=== PATIENT | male | born 1950 | race Caucasian/White ===

== ENCOUNTER 2016-10-13 04:13 | Inpatient (IN) | payer MEDICARE ==
[~2016-10-13] VITALS: Ht 172.7 cm; Wt 95.0 kg
[2016-10-13] VITALS (7 sets, daily range): BP systolic 122–167; BP diastolic 58–72
[2016-10-13 04:53] LABS: HEMATOCRIT 41.9 % (42.0-52.0); HEMOGLOBIN 14.4 g/dl (14.0-18.0); MEAN CELL VOLUME 92.3 fl (80.0-94.0); MEAN CORPUSCULAR HGB 31.7 pg (27.0-31.0); MEAN CORPUSCULAR HGB CONC 34.4 g/dl (33.0-37.0); MEAN PLATELET VOLUME 9.8 fl (9.6-12.3); PLATELET COUNT AUTOMATED 201 10*3/uL (130-400); RED BLOOD COUNT 4.54 10*6/uL (4.50-5.90); RED CELL DISTRI WIDTH 12.5 % (0-14.5); WHITE BLOOD COUNT 9.6 10*3/uL (4.8-10.8)
[2016-10-13 05:10] LABS: ALBUMIN 3.6 gm/dl (3.1-4.5); ALKALINE PHOSPHATASE 120 U/L (45-117); BUN 21 mg/dl (7-24); CHLORIDE 105 mmol/L (98-107); CREATININE 1.38 mg/dL (0.70-1.30); LIPASE 110 U/L (73-393); SGOT/AST 27 IU/L (3-35); SGPT/ALT 31 U/L (12-78); SODIUM 141 mmol/L (136-145); TOTAL PROTEIN 7.5 gm/dL (6.4-8.2)
[2016-10-13 05:13] LABS: TOTAL CELLS COUNTED 100 #CELLS
[2016-10-13 05:14] LABS: PLATELET SUFFICIENCY NORMAL (NORMAL)
[2016-10-13] MEDS ORDERED: FLOMAX0.4 MG PO (07:54)
[2016-10-13] MEDS ORDERED: NORCO 5-325 TA1 EACH PO (07:54)
[2016-10-13] MEDS ORDERED: ZOFRAN ODT4 MG SL (07:54)
[2016-10-13 12:12] LABS: BILIRUBIN NEGATIVE (NEGATIVE); BLOOD NEGATIVE (NEGATIVE); CLARITY CLEAR (CLEAR); COLOR YELLOW (YELLOW); GLUCOSE NEGATIVE (NEGATIVE); KETONE NEGATIVE (NEGATIVE); LEUKO ESTERASE NEGATIVE (NEGATIVE); NITRITE NEGATIVE (NEGATIVE); UROBILINOGEN 0.2 E.U./dl (0.2-1.0)
[2016-10-13 12:33] LABS: WBC 0-2 wbc/hpf (0-5)
[2016-10-14] VITALS: BP 133/50
[2016-10-14 07:56] LABS: CREATININE 2.14 mg/dL (0.70-1.30); MAGNESIUM 2.1 mg/dL (1.5-2.1); PHOSPHOROUS 2.5 mg/dL (2.5-4.9); POTASSIUM 4.5 mmol/L (3.5-5.1)
[2016-10-14 08:00] VITALS: BP 139/48
[2016-10-14 08:03] LABS: THYROID STIM HORMONE (HS) 0.933 uIU/ml (0.358-4.75)
[2016-10-14 08:04] LABS: VITAMIN D, 25-HYDROXY 19.3 ng/mL (30-100)
[2016-10-14 12:00] VITALS: BP 132/61
[2016-10-14] MEDS ORDERED: NORCO 5/325 PO (14:18)
[2016-10-14] MEDS ORDERED: FLOMAX0.4 MG PO (14:18)
[2016-10-14] MEDS ORDERED: ZOFRAN4 MG PO (14:18)
[2016-10-14] MEDS ORDERED: Vitamin D PO (14:18)
[2016-10-14] MEDS ORDERED: NORCO 5-325 TA1 EACH PO (14:22)
[2016-10-14 16:00] VITALS: BP 114/45
[2016-10-14 20:00] VITALS: BP 125/57
[2016-10-15] VITALS: BP 120/55
[2016-10-15 07:31] LABS: BASO % 0.1 % (0.0-1.0); EOS % 0.3 % (1.0-4.0); HEMATOCRIT 37.2 % (42.0-52.0); HEMOGLOBIN 12.8 g/dl (14.0-18.0); LYMPH # 2.2 10*3/uL (1.3-4.4); LYMPH % 15.9 % (27.0-41.0); MEAN CELL VOLUME 91.2 fl (80.0-94.0); MEAN CORPUSCULAR HGB 31.4 pg (27.0-31.0); MEAN CORPUSCULAR HGB CONC 34.4 g/dl (33.0-37.0); MEAN PLATELET VOLUME 10.1 fl (9.6-12.3); MONO # 0.9 10*3/uL (0.1-1.0); MONO % 6.9 % (3.0-9.0); NEUT # 10.3 10*3/uL (2.3-7.9); NEUT % 76.1 % (47.0-73.0); PLATELET COUNT AUTOMATED 158 10*3/uL (130-400); RED BLOOD COUNT 4.08 10*6/uL (4.50-5.90); RED CELL DISTRI WIDTH 12.5 % (0-14.5); WHITE BLOOD COUNT 13.5 10*3/uL (4.8-10.8)
[2016-10-15 07:54] LABS: CREATININE 2.39 mg/dL (0.70-1.30); POTASSIUM 4.3 mmol/L (3.5-5.1)
[2016-10-15 08:00] VITALS: BP 138/61
[2016-10-15 12:00] VITALS: BP 126/67
== END 2016-10-15 16:20 | disposition short-term general hospital (02) | DRG 694 ==
LOC: ED 04:13 → 4E 08:08 → EDHOLD 08:08 → 4E 08:28
PROVIDERS: Emergency Medicine Emergency Medical Services; Student in an Organized Health Care Education/Training Program; ADMIT Internal Medicine
DX: N13.2 Hydronephrosis with renal and ureteral calculous obstruction (principal); N17.0 Acute kidney failure with tubular necrosis; E87.2 Acidosis; R73.9 Hyperglycemia, unspecified; E55.9 Vitamin D deficiency, unspecified; Z82.49 Family history of ischemic heart disease and other diseases of the circulatory system

== ENCOUNTER 2018-06-07 23:50 | Emergency (ER) | payer MEDICARE ==
[~2018-06-07] VITALS: Ht 175.2 cm; Wt 90.7 kg
--- NOTE | ~2018-06-07 | EKG ---
[place], [place] ELECTROCARDIOGRAM REPORT NAME: VANESSA MAURICE UNIT #: [id number] ROOM: DOCTOR: EPIPHANY DRAFT REPORT BIRTHDATE: [birth year] [facility] Test Date: 2018-06-08 Test Time: 00:13:58 Pat Name: VANESSA MAURICE Department: ED Room: 8 Gender: M [employer]: Sharon Diego : 1950 Requested By: ES GONZALEZ Order Number: [id number] Reading MD: Aram Escoto MD Measurements Intervals [place] Rate: 99 P: 24 ME: 152 QRS: 55 QRSD: 91 T: 6 QT: 337 QTc: 433 Interpretive Statements Sinus rhythm Nonspecific ST T changes Electronically Signed On 06-08-2018 12:19:46 PDT by Aram Escoto MD CM:EKGRPT:ELECTROCARDIOGRAM REPORT 0013 [id number] SE GONZALEZ MD EPIPHANY DRAFT REPORT SE GONZALEZ MD
[~2018-06-07 23:50] MED LIST: FLOMAX0.4 MG PO; NORCO 5-325 TA1 EACH PO; NORCO 5/325 PO; Vitamin D PO; ZOFRAN ODT4 MG SL; ZOFRAN4 MG PO
[2018-06-08 00:34] LABS: BASO % 0.2 % (0.0-1.0); EOS # 0.1 10*3/uL (0.0-0.4); EOS % 0.6 % (1.0-4.0); HEMATOCRIT 41.1 % (42.0-52.0); HEMOGLOBIN 14.5 g/dl (14.0-18.0); LYMPH # 1.9 10*3/uL (1.3-4.4); LYMPH % 17.2 % (27.0-41.0); MEAN CELL VOLUME 90.1 fl (80.0-94.0); MEAN CORPUSCULAR HGB 31.8 pg (27.0-31.0); MEAN CORPUSCULAR HGB CONC 35.3 g/dl (33.0-37.0); MEAN PLATELET VOLUME 9.5 fl (9.6-12.3); MONO # 1.1 10*3/uL (0.1-1.0); MONO % 9.8 % (3.0-9.0); NEUT % 71.7 % (47.0-73.0); PLATELET COUNT AUTOMATED 310 10*3/uL (130-400); RED BLOOD COUNT 4.56 10*6/uL (4.50-5.90); RED CELL DISTRI WIDTH 12.1 % (0-14.5); WHITE BLOOD COUNT 11.1 10*3/uL (4.8-10.8)
[2018-06-08 00:44] LABS: ACT PARTIAL THROMBO TIME 23.5 SECONDS (20.8-31.5)
[2018-06-08 00:50] LABS: ALBUMIN 3.2 gm/dl (3.1-4.5); ALKALINE PHOSPHATASE 95 U/L (45-117); BUN 21 mg/dl (7-24); CHLORIDE 105 mmol/L (98-107); CREATININE 1.37 mg/dL (0.70-1.30); LIPASE 80 U/L (73-393); POTASSIUM 3.4 mmol/L (3.5-5.1); SGOT/AST 18 IU/L (3-35); SGPT/ALT 20 U/L (12-78); SODIUM 139 mmol/L (136-145); TOTAL PROTEIN 8.4 gm/dL (6.4-8.2)
[2018-06-08] MEDS ORDERED: PREDNISONE10 MG PO (00:51)
[2018-06-08] MEDS ORDERED: ZITHROMAX250 MG PO (00:51)
[2018-06-08] MEDS ORDERED: MUCINEX DM 30/61 TAB PO (00:51)
[2018-06-08 00:54] LABS: TROPONIN I < 0.015 ng/ml (<0.045)
== END 2018-06-08 02:10 | disposition home or self-care (01) ==
LOC: ED 23:50
PROVIDERS: Emergency Medicine Emergency Medical Services
DX: J20.9 Acute bronchitis, unspecified (principal); Z79.899 Other long term (current) drug therapy

== ENCOUNTER → 2018-09-07 | Outpatient (CLI) | payer MEDICARE ==
[~2018-09-07] MED LIST changes: +MUCINEX DM 30/61 TAB PO; +PREDNISONE10 MG PO; +ZITHROMAX250 MG PO
--- NOTE | ~2018-09-07 | EKG ---
[place], [place] ELECTROCARDIOGRAM REPORT NAME: VANESSA MAURICE UNIT #: [id number] ROOM: DOCTOR: EPIPHANY DRAFT REPORT BIRTHDATE: [birth year] [facility] Test Date: 2018-09-07 Test Time: 09:06:23 Pat Name: VANESSA MAURICE Department: Room: Gender: [place]: : 1950 Requested By: SERENA GURROLA Order Number: [id number] Reading MD: Álvaro Leon MD Measurements Intervals [place] Rate: 58 P: 42 ME: 177 QRS: 57 QRSD: 92 T: 35 QT: 423 QTc: 416 Interpretive Statements Sinus rhythm Abnormal R-wave progression, early transition Compared to ECG 06/08/2018 00:13:58 No significant changes Electronically Signed On 09-19-2018 8:28:57 PDT by Álvaro Leon MD CM:EKGRPT:ELECTROCARDIOGRAM REPORT 5 [id number] SERENA PALENCIA DRAFT REPORT SERENA GURROLA MD
[2018-09-07 09:34] LABS: BASO % 0.5 % (0.0-1.0); EOS # 0.1 10*3/uL (0.0-0.4); EOS % 1.9 % (1.0-4.0); HEMATOCRIT 42.3 % (42.0-52.0); HEMOGLOBIN 14.5 g/dl (14.0-18.0); LYMPH # 2.7 10*3/uL (1.3-4.4); LYMPH % 42.2 % (27.0-41.0); MEAN CELL VOLUME 93.2 fl (80.0-94.0); MEAN CORPUSCULAR HGB 31.9 pg (27.0-31.0); MEAN CORPUSCULAR HGB CONC 34.3 g/dl (33.0-37.0); MEAN PLATELET VOLUME 9.7 fl (9.6-12.3); MONO # 0.7 10*3/uL (0.1-1.0); NEUT # 2.8 10*3/uL (2.3-7.9); NEUT % 44.1 % (47.0-73.0); PLATELET COUNT AUTOMATED 188 10*3/uL (130-400); RED BLOOD COUNT 4.54 10*6/uL (4.50-5.90); RED CELL DISTRI WIDTH 12.9 % (0-14.5); WHITE BLOOD COUNT 6.4 10*3/uL (4.8-10.8)
[2018-09-07 10:03] LABS: ALBUMIN 3.7 gm/dl (3.1-4.5); ALKALINE PHOSPHATASE 122 U/L (45-117); BUN 18 mg/dl (7-24); CHLORIDE 105 mmol/L (98-107); CHOLESTEROL 233 mg/dL (<200); CREATININE 1.29 mg/dL (0.70-1.30); HDL CHOLESTEROL 46 mg/dl (40-60); LDL CHOLESTEROL 169 mg/dL (9-159); POTASSIUM 4.1 mmol/L (3.5-5.1); SGOT/AST 21 IU/L (3-35); SGPT/ALT 36 U/L (12-78); SODIUM 138 mmol/L (136-145); TOTAL PROTEIN 7.8 gm/dL (6.4-8.2); TRIGLYCERIDES 91 mg/dl (<150); VLDL CHOLESTEROL 18 mg/dL (6-40)
== END | disposition home or self-care (01) ==
LOC: RESCLI 09-06 12:49
PROVIDERS: Internal Medicine Nephrology
DX: Z12.11 Encounter for screening for malignant neoplasm of colon (principal); Z12.5 Encounter for screening for malignant neoplasm of prostate; Z12.12 Encounter for screening for malignant neoplasm of rectum; L82.1 Other seborrheic keratosis; R03.0 Elevated blood-pressure reading, without diagnosis of hypertension; N52.9 Male erectile dysfunction, unspecified; Z76.89 Persons encountering health services in other specified circumstances; Z88.8 Allergy status to other drugs, medicaments and biological substances; Z79.899 Other long term (current) drug therapy

== ENCOUNTER 2021-03-27 18:09 | Emergency (ER) | payer MEDICARE ==
[~2021-03-27] VITALS: Ht 172.7 cm; Wt 101.6 kg
[2021-03-27 18:35] LABS: BASO % 0.5 % (0.0-1.0); EOS # 0.1 10*3/uL (0.0-0.4); EOS % 1.7 % (1.0-4.0); LYMPH # 2.6 10*3/uL (1.3-4.4); LYMPH % 31.3 % (27.0-41.0); MEAN CELL VOLUME 89.2 fl (80.0-94.0); MEAN CORPUSCULAR HGB 31.2 pg (27.0-31.0); MEAN PLATELET VOLUME 9.8 fl (9.6-12.3); MONO # 0.6 10*3/uL (0.1-1.0); MONO % 7.5 % (3.0-9.0); NEUT # 4.9 10*3/uL (2.3-7.9); NEUT % 58.6 % (47.0-73.0); PLATELET COUNT AUTOMATED 216 10*3/uL (130-400); RED BLOOD COUNT 4.93 10*6/uL (4.50-5.90); RED CELL DISTRI WIDTH 12.2 % (0-14.5); WHITE BLOOD COUNT 8.4 10*3/uL (4.8-10.8)
[2021-03-27 18:45] LABS: ALBUMIN 3.5 gm/dl (3.1-4.5); CREATININE 1.65 mg/dL (0.70-1.30); POTASSIUM 3.9 mmol/L (3.5-5.1); TOTAL PROTEIN 7.5 gm/dL (6.4-8.2)
[2021-03-27 18:50] LABS: ACT PARTIAL THROMBO TIME 26.1 SECONDS (20.0-32.1); INTERNATIONAL NORM RATIO 0.9 (2.0-3.5)
== END 2021-03-27 21:03 | disposition left against medical advice (07) ==
LOC: ED 18:09
PROVIDERS: Emergency Medicine
DX: R07.9 Chest pain, unspecified (principal); Z87.442 Personal history of urinary calculi